=== PATIENT | male | born 1950 | race African-American/Black ===

== ENCOUNTER 2021-05-20 20:30 | Emergency (ER) | payer MEDICAID ==
[~2021-05-20] VITALS: Ht 175.3 cm; Wt 83.0 kg
[2021-05-20] MEDS ORDERED: FAMOTIDINE 20MG/2ML VIAL IV ONE (22:15)
[2021-05-20] MEDS ORDERED: DEXAMETHASONE 4MG/ML 1ML VIAL IV ONE (22:15)
[2021-05-20] MEDS ORDERED: DIPH25CA83 MT (23:36)
[2021-05-20 23:45] VITALS: BP 123/88
== END 2021-05-20 23:50 | disposition home or self-care (01) ==
LOC: ER 20:30
DX: T78.40XA Allergy, unspecified, initial encounter (principal); L50.9 Urticaria, unspecified; I25.2 Old myocardial infarction; Z98.890 Other specified postprocedural states; Z79.899 Other long term (current) drug therapy; X58.XXXA Exposure to other specified factors, initial encounter
CPT/HCPCS: 93005; 96374; 96375; 99284; J1100; J3490